=== PATIENT | female | born 1955 | race Caucasian/White ===

== ENCOUNTER 2019-12-01 14:43 | Outpatient (CLI) | payer BC ==
--- NOTE | 2019-12-01 15:52 | MMO ---
Left Breast MAMMO Un[facility] LT+[facility]. CLINICAL HISTORY: Patient is 64 years old and is seen for diagnostic exam. The patient has no family history of breast cancer. The patient has no personal history of cancer. VIEWS: The views performed were: left craniocaudal with tomosynthesis; left mediolateral oblique with tomosynthesis; and left mediolateral with tomosynthesis. FILMS COMPARED: The present examination has been compared to prior imaging studies performed at [facility] on 07/25/2013, 07/30/2017 and 11/10/2019, and at [facility] on 12/01/2019. This study has been interpreted with the assistance of computer-aided detection. MAMMOGRAM FINDINGS: There are scattered fibroglandular densities. There is a new irregular mass measuring 20 millimeters with spiculated margins and associated amorphous or indistinct calcifications seen in the anterior sub-areolar region of the left breast. IMPRESSION: NEW MASS IN THE LEFT BREAST IS HIGHLY SUGGESTIVE OF MALIGNANCY. AN ULTRASOUND-GUIDED BREAST BIOPSY IS RECOMMENDED. SOLID IRREGULAR MASS ON ULTRASOUND FINDINGS AND RECOMMENDATIONS WERE DISCUSSED WITH THE PATIENT PRIOR TO LEAVING THE FACILITY. ALL QUESTIONS ANSWERED. THE RESULTS OF THIS EXAM WERE SENT TO THE PATIENT. ACR BI-RADS Category 5 - Highly suggestive of malignancy - appropriate action should be taken MAMMOGRAPHY NOTE: 1. A negative mammogram report should not delay a biopsy if a dominant of clinically suspicious mass is present. 2. Approximately 10% to 15% of breast cancers are not detected by mammography. 3. Adenosis and dense breasts may obscure an underlying neoplasm. Reported by: SHLOMO HAYNES MD Electonically Signed: [id number]
--- NOTE | 2019-12-01 19:11 | ULT ---
LEFT BREAST ULTRASOUND LIMITED: 12/01/19 HISTORY: Abnormal mammogram with mass in the subareolar aspect of the left breast. FINDINGS: The retroareolar region of the left breast at 6 o'clock demonstrates a 1.8 x 1.8 x 2.1 cm diameter ve ry poorly circumscribed spiculated appearing solid mass with shadowing very suggestive of malignancy. The left axilla was evaluated and demonstrated no evidence for adenopathy. IMPRESSION: Poorly circumscribed somewhat spiculated solid mass with shadowing, evidence for malignancy in the 6 o'clock retroareolar region of the left breast accounting for the mammographic finding. BIRADS 5: Highly Suggestive of Malignancy - Appropriate Action Should Be Taken Requires biopsy or surgical treatment Ultrasound guided biopsy is recommended. The patient will be contacted by this facility to schedule the ultrasound guided biopsy and Shelby Cesar will be notified of the need for the biopsy.
== END 2019-12-01 14:44 | disposition home or self-care (01) ==
LOC: BICMAMMO 14:43
PROVIDERS: ATTEND Obstetrics & Gynecology
DX: R92.8 Other abnormal and inconclusive findings on diagnostic imaging of breast (principal); N63.42 Unspecified lump in left breast, subareolar
CPT/HCPCS: G0279

== ENCOUNTER 2019-12-30 08:19 | Outpatient (CLI) | payer BC, OTHER ==
[2019-12-30 14:51] LABS: Hemoglobin 14.2 g/dL (12.0-16.0); Mean Corpuscular HGB CONC 34.5 g/dL (32.0-36.0); Mean Corpuscular Hemoglobin 32.8 pg (27.0-31.0); Mean Corpuscular Volume 95.1 fL (78.0-98.0); Mean Platelet Volume 10.3 fL (7.4-10.4); Platelet Count 206 thou/uL (130-400); RBC Distribution Width 11.2 % (11.5-14.5); Red Blood Cell (RBC) Count 4.31 mill/uL (4.20-5.40); White Blood Cell (WBC) Count 5.9 thou/uL (4.8-10.8)
[2019-12-30 15:00] LABS: Anion Gap 12 mmol/L (10-20); BUN (Urea Nitrogen) 14 mg/dL (9.8-20.1); Calc. Creatinine Clearance 0 mL/min (70-130); Calcium 9.8 mg/dL (7.8-10.44); Carbon Dioxide 29 mmol/L (23-31); Chloride 106 mmol/L (98-107); Estimated GFR-MDRD 77; Glucose 78 mg/dL (80-115); Potassium 3.9 mmol/L (3.5-5.1); Sodium 143 mmol/L (136-145)
[2019-12-31 12:29] LABS: SARS-CoV-2 MS2 Positive; SARS-CoV-2 N Gene Negative; SARS-CoV-2 S Gene Negative; SARS-CoV-2 by NAA Not Detected (NotDetected); SARS-CoV-2 orf1ab Negative
== END 2019-12-30 08:20 | disposition home or self-care (01) ==
LOC: LABBT 08:19
PROVIDERS: ATTEND Specialist
DX: Z01.812 Encounter for preprocedural laboratory examination (principal); Z11.59 Encounter for screening for other viral diseases; C50.912 Malignant neoplasm of unspecified site of left female breast
CPT/HCPCS: 80048; 85027; 87635; U0003

== ENCOUNTER 2020-01-03 07:15 | Day surgery (SDC) | payer BC ==
[2019-12-28 10:59] VITALS: BMI 28.1
[2020-01-03] MEDS ORDERED: Fentanyl 100 MCG/2 ML VIAL ONE ×2 (08:53→10:21)
[2020-01-03] MEDS ORDERED: Acetaminophen 500 MG TAB ONE (09:06)
[2020-01-03] MEDS ORDERED: Ketorolac Tromethamine 30 MG/ML VIAL ONE (09:44)
[2020-01-03] MEDS ORDERED: Lidocaine 1% w/Epinephrine 1:100K 20 ML VIAL ONE ×2 (10:00→11:52)
[2020-01-03] MEDS ORDERED: Bupivacaine 0.25% HCL 30 ML VIAL ONE ×2 (10:00→11:52)
[2020-01-03] MEDS ORDERED: Methylene Blue 50 MG/10 ML AMPUL ONE (10:00)
[2020-01-03] MEDS ORDERED: Dexamethasone 20 MG/5 ML VIAL ONE (10:34)
[2020-01-03] MEDS ORDERED: PHENYLEPHRINE-NS 100 MCG/ML 10 ML SYRINGE ONE (10:34)
[2020-01-03] MEDS ORDERED: EPHEDRINE 25 MG/5 ML SYRINGE ONE (10:34)
[2020-01-03] MEDS ORDERED: Ondansetron PF 4 MG/2 ML Vial ONE (10:34)
[2020-01-03] MEDS ORDERED: Lidocaine 1% PF 5 ML VIAL ONE (10:34)
[2020-01-03] MEDS ORDERED: PROPOFOL 200 MG/20 ML VIAL ONE (10:34)
--- NOTE | 2020-01-03 11:23 | NM ---
Nuclear medicine lymphoscintigraphy left breast: 01/03/2020 HISTORY: 64-year-old female with infiltrating ductal carcinoma of left breast C 50.912 TECHNIQUE: 0.415 mCi Tc FINDINGS: 0.415 mCi Tc 99m filtered sulfur colloid injected intradermal in 4 quadrants distribution left periar eolar. Immediate anterior and lateral scintigraphic images of chest. Findings: There is uptake in left sentinel axillary lymph node. IMPRESSION: Successful lymphoscintigraphy demonstrating left axillary sentinel lymph node.
[2020-01-03] MEDS ORDERED: HYDROcodone/Acetaminophen 5/325 mg Tablet ONE (13:39)
[2020-01-03] MEDS ORDERED: Morphine 2 MG/ML VIAL ONE (13:47)
--- NOTE | 2020-01-04 01:11 | OP ---
DATE OF PROCEDURE: 01/03/2020 PREOPERATIVE DIAGNOSIS: Central left breast cancer. POSTOPERATIVE DIAGNOSIS: Central left breast cancer. PROCEDURES PERFORMED: Left breast central lumpectomy, ultrasound-guided needle localization, sentinel lymph node mapping, left axillary sentinel lymph node biopsy. ANESTHESIA: General endotracheal. INDICATIONS: The patient is a 64-year-old white female. She had recently been diagnosed with a left breast cancer. This unfortunately was immediately underlying the nipple-areolar complex. Due to the location of the lesion, I offered a central lumpectomy and she decided to proceed with this rather than a mastectomy. She understands that postoperative radiation therapy will likely be necessary. DESCRIPTION OF OPERATION: Informed consent was obtained. The patient was taken to the operating room where general endotracheal anesthesia was obtained with the patient in supine position. Left breast and axilla were prepped with ChloraPrep and draped in sterile fashion. Attention was turned first to the axilla. The breast was infiltrated with 3 mL of Lymphazurin in a periareolar subdermal location and massaged for 5 minutes. Local anesthetic was infiltrated and a transverse incision was created at the inferior aspect of the axilla. Dissection was carried through skin and subcutaneous tissue as well as superficial axillary fascia. Neoprobe was utilized to identify areas of maximum radio intensity. She had 2 strongly radio-intense lymph nodes. The 1st of these was at the significant inferior aspect of the axilla and this one was strongly blue-stained. The 2nd was an interpectoral node that was far to the medial aspect of the axilla and had no significant blue staining. A 3rd lymph node that was palpable and adjacent to the 1st lymph node was dissected and removed as well. Each lymph node was dissected circumferentially and all investing lymphatics were divided between clamps and 3-0 silk ties. Meticulous hemostasis was obtained. The wound was closed in layers with 3-0 and 4-0 Monocryl suture and additional local anesthetic was instilled in the wound during closure. Attention was turned to the breast. Ultrasound was utilized to yesi the location of the cancer in a grid fashion on top of the breast. This is located at the inferior aspect of the subareolar location. I then placed a localizing needle in a lateral to medial fashion through the malignancy. An elliptical incision was then created to include the nipple and most of the areola, and dissection was carried through skin and subcutaneous tissue. Flaps were raised primarily inferiorly to incorporate the malignancy with appropriate margins. Dissection was carried just about down to the pectoral fascia and the specimen was removed intact. The specimen was tagged for orientation with suture and passed off the field. A specimen mammogram was obtained revealing that the localizing clip was present within the specimen. The wound was inspected. There was no further disease that was visible or palpable. Meticulous hemostasis obtained with electrocautery. The wound was closed in layers with 3-0 and 4-0 Monocryl suture. Additional local anesthetic was instilled in the wound during closure. Dermabond was placed externally. There were no complications. The patient tolerated the procedure well and was taken to recovery room in stable condition. Job ID: [id number]
== END 2020-01-03 14:45 | disposition home or self-care (01) ==
LOC: SDC 07:15
PROVIDERS: ATTEND Specialist
DX: C50.112 Malignant neoplasm of central portion of left female breast (principal); J45.909 Unspecified asthma, uncomplicated; Z17.0 Estrogen receptor positive status [ER+]; Z79.899 Other long term (current) drug therapy; Z91.018 Allergy to other foods
CPT/HCPCS: 76098; 78195; 88307; 88341; 88342; A9541; J0690; J1100; J1885; J2270; J2405; J2704; J3010; Q9968; S0020

== ENCOUNTER 2020-12-13 14:50 | Outpatient (CLI) | payer BC | END 2020-12-13 14:51 | disposition home or self-care (01) | LOC: BICMAMMO 14:50 | PROVIDERS: ATTEND Specialist | DX: Z08 Encounter for follow-up examination after completed treatment for malignant neoplasm (principal); Z85.3 Personal history of malignant neoplasm of breast | CPT/HCPCS: 77066; G0279 ==

== ENCOUNTER 2021-12-23 10:07 | Outpatient (CLI) | payer BC | END 2021-12-23 10:08 | disposition home or self-care (01) | LOC: BICMAMMO 10:07 | PROVIDERS: ATTEND Specialist | DX: Z08 Encounter for follow-up examination after completed treatment for malignant neoplasm (principal); Z85.3 Personal history of malignant neoplasm of breast | CPT/HCPCS: 77066; G0279 ==

== ENCOUNTER 2023-12-28 09:34 | Outpatient (CLI) | payer MEDICARE | END 2023-12-28 09:35 | disposition home or self-care (01) | LOC: BICMAMMO 09:34 | PROVIDERS: ATTEND Specialist | DX: Z12.31 Encounter for screening mammogram for malignant neoplasm of breast (principal); Z85.3 Personal history of malignant neoplasm of breast; Z98.890 Other specified postprocedural states | CPT/HCPCS: 77063; 77067 ==